=== PATIENT | female | born 1960 | race Caucasian/White ===

== ENCOUNTER 2017-03-31 13:25 | Emergency (ER) | payer SELFPAY ==
[~2017-03-31 13:25] MED LIST: GLUCTAB PO; LISI-360 PO
[2017-03-31 13:32] VITALS: BP 241/117; PULSE 115; RESP 20; TEMP 100; O2SAT 95
--- NOTE | 2017-03-31 13:52 | PD ---
HPI Chief Complaint: Respiratory Symptoms Time Seen by Provider: 13:44 Travel History International Travel<30 days: No Contact w/Intl Traveler<30days: No Traveled to known affect area: No History of Present Illness HPI This 57-year-old female says she been sick for the past week. She's been coughing and very congested. She isn't short of breath at times. She smokes one half packs aggravated today. She had asthma as a child. She is not on any medication for her breathing. She is not having any pain PFSH Past Medical History Cancer: No Cardiovascular Problems: No Diabetes: Yes (TYPE II) Diminished Hearing: No Endocrine: Yes Genitourinary: No Hepatitis: No Hiatal Hernia: No Hypertension: Yes Immune Disorder: No Musculoskeletal: Yes (WEAKNESS RIGHT ARM AND SIDE OF CHEST, 2 CERVICAL HERNIATED DISC) Neurologic: Yes (WEAKNESS RIGHT ARM AND SIDE OF CHEST) Psychiatric: No Respiratory: No Immunizations Current: Yes Thyroid Disease: Yes (THROID NODULES) LMP: YEARS AGO Menopausal: Yes Tubal Ligation: Yes Past Surgical History Abdominal Surgery: No Body Medical Devices: NONE Cardiac Surgery: No Ear Surgery: No Endocrine Surgery: No Eye Surgery: No Genitourinary Surgery: No Gynecologic Surgery: Yes (TUBAL LIGATION) Oral Surgery: No Thoracic Surgery: No Social History Alcohol Use: Yes (occ) Tobacco Use: Yes (1 PPD) Substance Use: No Allergies-Medications (Allergen,Severity, Reaction): Coded Allergies: No Known Allergies (Unverified , 12/15/14) Reported Meds & Prescriptions Reported Meds & Active Scripts Active No Active Prescriptions or Reported Medications Review of Systems General / Constitutional: Positive: Fever, Chills Eyes: No: Diploplia, Blurred Vision HENT: Positive: Rhinitis, No: Headaches, Vertigo Cardiovascular: No: Chest Pain or Discomfort, Palpitations Respiratory: No: Cough, Shortness of Breath Gastrointestinal: No: Vomiting, Diarrhea Genitourinary: No: Urgency, Frequency Musculoskeletal: Positive: Myalgias Neurologic: Positive: Weakness Physical Exam Narrative GENERAL: Well-developed female SKIN: Focused skin assessment warm/dry. HEAD: Atraumatic. Normocephalic. EYES: Pupils equal and round. No scleral icterus. No injection or drainage. ENT: No nasal bleeding or discharge. Mucous membranes pink and moist. NECK: Trachea midline. No JVD. CARDIOVASCULAR: Regular rate and rhythm. No murmur appreciated. RESPIRATORY: No accessory muscle use. There are scattered wheezes bilaterally GASTROINTESTINAL: Abdomen soft, non-tender, nondistended. Hepatic and splenic margins not palpable. MUSCULOSKELETAL: No obvious deformities. No clubbing. No cyanosis. No edema. NEUROLOGICAL: Awake and alert. No obvious cranial nerve deficits. Motor grossly within normal limits. Normal speech. PSYCHIATRIC: Appropriate mood and affect; insight and judgment normal. Data Data Last Documented VS Vital Signs Date Time Temp Pulse Resp B/P (MAP) Pulse Ox O2 Delivery O2 Flow Rate FiO2 03/31/17 14:09 93 21 03/31/17 13:32 100.0 115 20 241/117 (158) Orders Orders Chest, Single Ap (03/31/17 13:49) Prednisone (Deltasone) (03/31/17 14:00) Albuterol-Ipratropium Neb (Duoneb Neb) (03/31/17 14:00) MDM Medical Decision Making Medical Screen Exam Complete: Yes Emergency Medical Condition: Yes Medical Record Reviewed: Yes Differential Diagnosis Differential includes pneumonia, COPD, asthma exacerbation Narrative Course Chest x-ray is negative for infiltrate. Impression is COPD exacerbation Diagnosis Primary Impression: COPD exacerbation Scripts Albuterol 18 GM Inh (Ventolin Hfa 18 GM Inh) 90 Mcg/Act Aer 2 PUFF INH Q4H Y for SHORTNESS OF BREATH, #1 INHALER 0 Refills Prov: Bar Brandon MD 03/31/17 Prednisone (Prednisone) 20 Mg Tab 20 MG PO DIRECTED, #24 TAB 0 Refills Take 60 MG daily x 4 days, then 40 MG x 4 days, then 20 MG daily x 4 days. Prov: Bar Brandon MD 03/31/17 Amoxicillin (Amoxicillin) 500 Mg Tab 500 MG PO TID for Infection for 10 Days, TAB 0 Refills Prov: Bar Brandon MD 03/31/17 Disposition: 01 DISCHARGE HOME Condition: Stable Bar Brandon MD Mar 31, 2017 13:52
[2017-03-31] MEDS ORDERED: RESP: ALBUTEROL 2.5 MG/IPRATROPIUM 0.5 MG NEB (SCH) NEB ONE (14:00)
[2017-03-31] MEDS ORDERED: predniSONE 20 MG TAB PO ONE (14:00)
[2017-03-31 14:09] VITALS: O2SAT 93
[2017-03-31] MEDS ORDERED: AMOX500T PO (14:41)
[2017-03-31] MEDS ORDERED: VENTAER INH (14:41)
[2017-03-31] MEDS ORDERED: PRED20 PO (14:41)
--- NOTE | 2017-03-31 15:25 | RADRPT ---
EXAM DATE/TIME: 03/31/2017 13:57 [facility] COMPARISON: [facility] ([facility]), December 15, 2014, 11:59. INDICATIONS : Cough MEDICAL HISTORY : None. SURGICAL HISTORY : None. ENCOUNTER: Initial ACUITY: 1 day PAIN SCORE: 0/10 LOCATION: Bilateral chest FINDINGS: The heart is normal in size. There are chronic appearing interstitial changes. No suspicious mass les ions are identified. No pneumonia is identified. The osseous structures are intact. CONCLUSION: 1. Chronic appearing interstitial changes. No acute abnormality. Dale Moran MD on March 31, 2017 at 15:22 Board Certified Radiologist. This report was verified electronically.
== END 2017-03-31 15:24 | disposition home or self-care (01) ==
LOC: PHED 13:25
DX: J44.1 Chronic obstructive pulmonary disease with (acute) exacerbation (principal); I10 Essential (primary) hypertension; E11.9 Type 2 diabetes mellitus without complications; F17.210 Nicotine dependence, cigarettes, uncomplicated
CPT/HCPCS: 71045; 94664; 99284; J7512

== ENCOUNTER 2017-06-02 15:10 | Emergency (ER) | payer OTHER ==
[~2017-06-02] VITALS: Ht 165.1 cm; Wt 73.0 kg
[~2017-06-02 15:10] MED LIST changes: +AMOX500T PO; -GLUCTAB PO; -LISI-360 PO; +PRED20 PO; +VENTAER INH
[2017-06-02 15:14] VITALS: BP 232/105; PULSE 86; RESP 16; TEMP 98; O2SAT 98
--- NOTE | 2017-06-02 15:35 | PD ---
HPI Chief Complaint: Flank/Kidney Pain Time Seen by Provider: 15:34 Travel History International Travel<30 days: No Contact w/Intl Traveler<30days: No Traveled to known affect area: No History of Present Illness HPI 57-year-old female came to the emergency room with history of bilateral flank pain for past 3 days. Patient says that she is having some dysuria as well. She has noticed some blood in her urine. Patient does not get pain like this usually. She does not take any medications for this pain at home. Today at work she started getting nauseous and body ache when she decided to come to the emergency room. Patient was hypertensive in triage. She says she has history of hypertension and diabetes but has not taken any medications since she does not have insurance. She appeared to be uncomfortable. [facility] Past Medical History Narrative Medical List of her past medical, surgical, social and family history is reviewed from the nursing note. Hx Anticoagulant Therapy: No Cancer: No Cardiovascular Problems: Yes (HTN) Diabetes: Yes Diminished Hearing: No Endocrine: Yes Genitourinary: No Hepatitis: No Hiatal Hernia: No Hypertension: Yes Immune Disorder: No Musculoskeletal: Yes (WEAKNESS RIGHT ARM AND SIDE OF CHEST, 2 CERVICAL HERNIATED DISC) Neurologic: Yes (WEAKNESS RIGHT ARM AND SIDE OF CHEST) Psychiatric: No Respiratory: No Immunizations Current: Yes Thyroid Disease: Yes (THROID NODULES) ?: Not Menopausal: Yes Tubal Ligation: Yes Past Surgical History Abdominal Surgery: No Body Medical Devices: NONE Cardiac Surgery: No Ear Surgery: No Endocrine Surgery: No Eye Surgery: No Genitourinary Surgery: No Gynecologic Surgery: Yes (TUBAL LIGATION) Oral Surgery: No Thoracic Surgery: No Social History Alcohol Use: Yes (occ) Tobacco Use: Yes (1 PPD) Substance Use: No Allergies-Medications (Allergen,Severity, Reaction): Coded Allergies: No Known Allergies (Verified Adverse Reaction, Unknown, 06/02/17) Comments No known drug allergies. Reported Meds & Prescriptions Reported Meds & Active Scripts Active Macrobid (Nitrofurantoin Monoh/Nitrofur Macro) 100 Mg Cap 100 Mg PO BID 7 Days Glucophage (Metformin HCl) 500 Mg Tab 500 Mg PO BIDPC Amlodipine (Amlodipine Besylate) 5 Mg Tab 5 Mg PO DAILY Narrative Medication List of her home medications reviewed from the nursing note. Review of Systems Except as stated in HPI: all other systems reviewed are Neg Genitourinary: Positive: Flank Pain Musculoskeletal: Positive: Myalgias Physical Exam Narrative GENERAL: Awake, alert, moderate distress SKIN: Focused skin assessment warm/dry. HEAD: Atraumatic. Normocephalic. EYES: Pupils equal and round. No scleral icterus. No injection or drainage. ENT: No nasal bleeding or discharge. Mucous membranes pink and moist. NECK: Trachea midline. No JVD. CARDIOVASCULAR: Regular rate and rhythm. No murmur appreciated. RESPIRATORY: No accessory muscle use. Clear to auscultation. Breath sounds equal bilaterally. GASTROINTESTINAL: Abdomen soft, non-tender, nondistended. Hepatic and splenic margins not palpable. MUSCULOSKELETAL: No obvious deformities. No clubbing. No cyanosis. No edema. NEUROLOGICAL: Awake and alert. No obvious cranial nerve deficits. Motor grossly within normal limits. Normal speech. PSYCHIATRIC: Appropriate mood and affect; insight and judgment normal. Data Data Last Documented VS Orders Orders Complete Blood Count With Diff (06/02/17 15:57) Basic Metabolic Panel (Bmp) (06/02/17 15:57) Urinalysis - C+S If Indicated (06/02/17 15:57) Ct Abd/Pel W/O Iv Contrast (06/02/17 15:57) Ecg Monitoring (06/02/17 15:57) Iv Access Insert/Monitor (06/02/17 15:57) Sodium Chloride 0.9% Flush (Ns Flush) (06/02/17 16:00) Sodium Chlor 0.9% 1000 Ml Inj (Ns 1000 M (06/02/17 15:57) Morphine Inj (Morphine Inj) (06/02/17 16:00) Ondansetron Inj (Zofran Inj) (06/02/17 16:00) Clonidine (Catapres) (06/02/17 17:00) Urine Culture (06/02/17 16:10) Nitrofurantoin Monohyd Macrocr (Macrobid (06/02/17 17:45) Ed Discharge Order (06/02/17 18:24) Labs Laboratory Tests Test 06/02/17 16:10 White Blood Count 8.6 TH/MM3 Red Blood Count 4.86 MIL/MM3 Hemoglobin 14.3 GM/DL Hematocrit 42.7 % Mean Corpuscular Volume 87.8 FL Mean Corpuscular Hemoglobin 29.3 PG Mean Corpuscular Hemoglobin Concent 33.4 % Red Cell Distribution Width 13.5 % Platelet Count 157 TH/MM3 Mean Platelet Volume 10.3 FL Neutrophils (%) (Auto) 74.1 % Lymphocytes (%) (Auto) 17.3 % Monocytes (%) (Auto) 6.4 % Eosinophils (%) (Auto) 1.7 % Basophils (%) (Auto) 0.5 % Neutrophils # (Auto) 6.5 TH/MM3 Lymphocytes # (Auto) 1.5 TH/MM3 Monocytes # (Auto) 0.5 TH/MM3 Eosinophils # (Auto) 0.1 TH/MM3 Basophils # (Auto) 0.0 TH/MM3 CBC Comment DIFF FINAL Differential Comment Urine Color YELLOW Urine Turbidity CLEAR Urine pH 6.0 Urine Specific [place] 1.010 Urine Protein NEG mg/dL Urine Glucose (UA) 500 mg/dL Urine Ketones NEG mg/dL Urine Occult Blood LARGE Urine Nitrite NEG Urine Bilirubin NEG Urine Urobilinogen 0.2 MG/DL Urine Leukocyte Esterase TRACE Urine RBC 4-9 /hpf Urine WBC 9-14 /hpf Urine WBC Clumps FEW Urine Squamous Epithelial Cells 0-5 /hpf Microscopic Urinalysis Comment CULTURE INDICATED Blood Urea Nitrogen 12 MG/DL Creatinine 0.69 MG/DL Random Glucose 212 MG/DL Calcium Level 8.8 MG/DL Sodium Level 137 MEQ/L Potassium Level 3.5 MEQ/L Chloride Level 101 MEQ/L Carbon Dioxide Level 30.7 MEQ/L Anion Gap 5 MEQ/L Estimat Glomerular Filtration Rate 88 ML/MIN [facility] Medical Decision Making Medical Screen Exam Complete: Yes Emergency Medical Condition: Yes Medical Record Reviewed: Yes Differential Diagnosis Lumbar radiculopathy, pyelonephritis, UTI Narrative Course 4:56 PM awaiting for the blood test result, UA and CT to be done and resulted. Patient was medicated for pain. CBC was back and within normal limits. Patient continues to be hypertensive. I've ordered 0.2 mg of clonidine. 5:32 PM UA is positive. I've given her dose of Macrobid she'll go home on a prescription for that. Repeat blood pressure needs to be reassessed. Procedures EKG Prior to Arrival: No Diagnosis Primary Impression: Hypertension Qualified Codes: I10 - Essential (primary) hypertension Additional Impressions: UTI (urinary tract infection) Qualified Codes: N39.0 - Urinary tract infection, site not specified; R31.9 - Hematuria, unspecified Back pain Qualified Codes: M54.5 - Low back pain Noncompliance with medication regimen Referrals: Primary Care Physician 2 days Additional Instructions: You must take your blood pressure medication and diabetes medication as per the recommendation. Return to the ER if condition worsens or any other new concerns. Drink lots of fluid. Med/Other Pt SpecificInfo: Prescription(s) given Scripts Nitrofurantoin Monohydrate Macrocrystals (Macrobid) 100 Mg Cap 100 MG PO BID for Infection for 7 Days, #14 CAP 0 Refills Prov: Luis Fernando Nelson MD 06/02/17 Metformin (Glucophage) 500 Mg Tab 500 MG PO BIDPC for Blood Sugar Management, #60 TAB 0 Refills Prov: Luis Fernando Nelson MD 06/02/17 Amlodipine (Amlodipine) 5 Mg Tab 5 MG PO DAILY for Blood Pressure Management, #30 TAB 0 Refills Prov: Luis Fernando Nelson MD 06/02/17 Disposition: 01 DISCHARGE HOME Condition: Stable Luis Fernando Nelson MD Jun 02, 2017 15:35
[2017-06-02 15:45] VITALS: BP 194/102; PULSE 82; RESP 16; O2SAT 95
[2017-06-02] MEDS ORDERED: SODIUM CHLOR 0.9% 1000 ML INJ 1,000 ML IV ONE (15:57)
[2017-06-02] MEDS ORDERED: SODIUM CHLORIDE 0.9% FLUSH 10 ML FLUSH IVF PRN (16:00)
[2017-06-02] MEDS ORDERED: ONDANSETRON HCL 4 MG/2 ML VIAL IV PUSH ONE (16:00)
[2017-06-02] MEDS ORDERED: MORPHINE SULFATE 8 MG/ML INJ IV PUSH ONE (16:00)
[2017-06-02 16:45] VITALS: BP 215/107; PULSE 82; RESP 16; O2SAT 98
[2017-06-02 16:48] LABS: AUTOMATED NEUTROPHIL # 6.5 TH/MM3 (1.8-7.7); BASOPHIL % 0.5 % (0.0-2.0); EOSINOPHIL # 0.1 TH/MM3 (0-0.4); EOSINOPHIL % 1.7 % (0.0-4.0); HEMATOCRIT 42.7 % (35.0-46.0); HEMOGLOBIN 14.3 GM/DL (11.6-15.3); LYMPH % 17.3 % (9.0-44.0); LYMPHOCYTE # 1.5 TH/MM3 (1.0-4.8); MEAN CELL VOLUME 87.8 FL (80.0-100.0); MEAN CORPUSCULAR HEMOGLOBIN 29.3 PG (27.0-34.0); MEAN CORPUSCULAR HGB CONC 33.4 % (32.0-36.0); MEAN PLATELET VOLUME 10.3 FL (7.0-11.0); MONO % 6.4 % (0.0-8.0); MONOCYTE # 0.5 TH/MM3 (0-0.9); NEUT % 74.1 % (16.0-70.0); PLATELET COUNT 157 TH/MM3 (150-450); RED BLOOD COUNT 4.86 MIL/MM3 (4.00-5.30); RED CELL DISTRIBUTION WIDTH 13.5 % (11.6-17.2); WHITE BLOOD COUNT 8.6 TH/MM3 (4.0-11.0)
[2017-06-02 16:57] LABS: BILIRUBIN, URINE NEG (NEG); BLOOD, URINE LARGE (NEG); GLUCOSE,URINE 500 mg/dL (NEG); KETONE, URINE NEG (NEG); NITRITE,URINE NEG (NEG); URINE COLOR YELLOW (YELLW/STRAW); URINE LEUKOCYTE ESTERASE TRACE (NEG)
[2017-06-02] MEDS ORDERED: cloNIDine HCL 0.2 MG TAB PO ONE (17:00)
[2017-06-02 17:10] LABS: CALCIUM 8.8 MG/DL (8.5-10.1)
[2017-06-02 17:11] LABS: BICARBONATE 30.7 MEQ/L (21.0-32.0)
[2017-06-02 17:14] LABS: CREATININE 0.69 MG/DL (0.50-1.00)
--- NOTE | 2017-06-02 17:16 | RADRPT ---
EXAM DATE/TIME: 06/02/2017 17:01 [facility] COMPARISON: No previous studies available for comparison. INDICATIONS : Flank pain, hematuria. ORAL CONTRAST: No oral contrast ingested. RADIATION DOSE: 18.06 CTDIvol (mGy) MEDICAL HISTORY : Hypertension. Diabetes mellitus type 2. SURGICAL HISTORY : Hysterectomy. ENCOUNTER: Initial ACUITY: 1 day PAIN SCALE: 6/10 LOCATION: Bilateral flank TECHNIQUE: Volumetric scanning of the abdomen and pelvis was performed. Using automated exposure control and ad justment of the mA and/or kV according to patient size, radiation dose was kept as low as reasonably achievable to obtain optimal diagnostic quality images. DICOM format image data is available electro nically for review and comparison. FINDINGS: LOWER LUNGS: The visualized lower lungs are clear. LIVER: Homogeneous density without lesion. There is moderate hepatic steatosis. The gallbladder is unremarka ble in appearance. There is no dilation of the biliary tree. No calcified gallstones. SPLEEN: Normal size without lesion. PANCREAS: Within normal limits. KIDNEYS: Normal in size and shape. There is no mass, stone, or hydronephrosis. ADRENAL GLANDS: Within normal limits. VASCULAR: There is no aortic aneurysm. BOWEL/MESENTERY: The stomach, small bowel, and colon demonstrate no acute abnormality. There is no free intraperitone al air or fluid. ABDOMINAL WALL: Within normal limits. RETROPERITONEUM: There is no lymphadenopathy. BLADDER: No wall thickening or mass. REPRODUCTIVE: Within normal limits. INGUINAL: There is no lymphadenopathy or hernia. MUSCULOSKELETAL: Within normal limits for patient age. CONCLUSION: 1. The kidneys are unremarkable in appearance with no renal calculi or obstruction. 2. Moderate hepatic steatosis. Piyush Ren MD on June 02, 2017 at 17:11 Board Certified Radiologist. This report was verified electronically.
[2017-06-02 17:28] LABS: SQUAMOUS EPITHELIAL CELL URINE 0-5 /hpf (0-5); WHITE BLOOD CELL CLUMPS FEW
[2017-06-02] MEDS ORDERED: MACR100C2 PO (17:42)
[2017-06-02] MEDS ORDERED: METF500 PO (17:42)
[2017-06-02] MEDS ORDERED: AMLO5TAB2 PO (17:42)
[2017-06-02 17:45] VITALS: BP 217/100; PULSE 81; RESP 12; O2SAT 97
[2017-06-02] MEDS ORDERED: NITROFURANTOIN MONOHYD MACROCR 100 MG CAP PO ONE (17:45)
[2017-06-02 17:58] VITALS: BP 235/130; PULSE 76; RESP 16; O2SAT 98
[2017-06-02 18:42] VITALS: BP 187/101; PULSE 76; RESP 16; O2SAT 98
== END 2017-06-02 18:45 | disposition home or self-care (01) ==
LOC: PHED 15:10
DX: I10 Essential (primary) hypertension (principal); N39.0 Urinary tract infection, site not specified; B96.89 Other specified bacterial agents as the cause of diseases classified elsewhere; M54.5 Low back pain; E11.9 Type 2 diabetes mellitus without complications; E04.2 Nontoxic multinodular goiter; F17.200 Nicotine dependence, unspecified, uncomplicated; Z91.14 Patient's other noncompliance with medication regimen
CPT/HCPCS: 74176; 80048; 81001; 85025; 87077; 87086; 87186; 96374; 96375; 99285; J2270; J2405; J7030